=== PATIENT | male | born 1960 | race Caucasian/White ===

== ENCOUNTER → 2020-04-15 13:42 | Outpatient (CLI) | payer BC, SELFPAY ==
--- NOTE | ~2020-04-15 | XR_ITS ---
EXAMINATION: XR foot RT 2V DATE: 04/15/2020 14:00 INDICATION: Right foot pain. TECHNIQUE: 2 views of right foot were obtained. COMPARISON: None. FINDINGS: There is mild hallux valgus. No fracture. There is mild osteoarthritis of first metatarsoph alangeal joint. Small loose bodies overlie the posterior recess of the ankle joint. There is an enthe sophyte at plantar aspect of calcaneal tuberosity. IMPRESSION: 1. Mild hallux valgus. 2. Mild osteoarthritis of first metatarsophalangeal joint. 3. Small ankle joint loose bodies. Reviewed, dictated and finalized at location B.
--- NOTE | ~2020-04-15 | XR_ITS ---
EXAMINATION: XR ankle RT 2V DATE: 04/15/2020 14:00 INDICATION: Right ankle pain. TECHNIQUE: 2 views of right ankle were obtained. COMPARISON: None. FINDINGS: Bone alignment is normal. No fracture. Joint spaces are normal. There are small loose nae s in the ankle joint. There is an enthesophyte at plantar aspect of calcaneal tuberosity. Ankle soft tissue swelling is noted. IMPRESSION: 1. Small loose bodies in the ankle joint. Reviewed, dictated and finalized at location B.
== END ==
PROVIDERS: PCP Family Medicine; Visit Provider Nurse Practitioner Family
DX: M20.11 Hallux valgus (acquired), right foot (principal); M19.071 Primary osteoarthritis, right ankle and foot; M24.071 Loose body in right ankle
CPT/HCPCS: 73600; 73620

== ENCOUNTER 2024-01-24 10:48 | Outpatient (CLI) | payer MEDICARE, SELFPAY ==
--- NOTE | ~2024-01-24 | US_ITS ---
EXAMINATION: US soft tissue head and neck DATE: 01/24/2024 10:57 INDICATION: Benign lipomatous neoplasm, unspecified. TECHNIQUE: Multiple grayscale and Doppler ultrasound images of the head and neck were obtained. COMPARISON: Head CT 07/09/2010 FINDINGS: In the posterior neck, there is a 2.4 x 1.5 x 2.4 cm subcutaneous hypoechoic mass. No inter nal vascularity. IMPRESSION: 1. 2.4 cm hypoechoic subcutaneous mass in the posterior neck, most likely a sebaceous cyst. Neoplasm is not excluded. Reviewed, dictated and finalized at location A. IMPRESSION: 1. 2.4 cm hypoechoic subcutaneous mass in the posterior neck, most likely a eliel aceous cyst. Neoplasm is not excluded.
== END 2024-01-24 10:49 ==
LOC: MICIMG 10:49
PROVIDERS: PCP Family Medicine; Visit Provider Nurse Practitioner Adult Health
DX: D17.9 Benign lipomatous neoplasm, unspecified (principal); R22.1 Localized swelling, mass and lump, neck
CPT/HCPCS: 76536

== ENCOUNTER 2024-10-03 14:46 | Outpatient (CLI) | payer MEDICARE, SELFPAY ==
--- NOTE | ~2024-10-03 | XR_ITS ---
XR abdomen/kub 1V 10/03/2024 15:11 INDICATION: Abdomen pain TECHNIQUE: KUB COMPARISON: None FINDINGS: Bowel gas pattern is normal. Moderate colonic fecal loading. There is no evidence of free a ir, mass, organomegaly, ascites or obstruction. No abnormal calculi are seen. The bones appear inta ct. IMPRESSION: 1: No acute abdominal abnormality identified. Reviewed, dictated and finalized at location B. COINER
--- NOTE | ~2024-10-03 | CT_ITS ---
EXAMINATION: CT abdomen pelvis wo/w con DATE: 10/03/2024 15:51 INDICATION: Unspecified abdominal pain. TECHNIQUE: Computed tomography (CT) of the abdomen and pelvis was performed without intravenous contr ast. CT of the abdomen and pelvis was then performed with a total of 130 mL Omnipaque-350 intravenous contrast using a double-bolus technique for simultaneous opacification of the renal parenchyma and r enal collecting system. Automated exposure control and iterative reconstruction technique were employ ed. The dose-length product was 1740.00 mGy-cm. COMPARISON: None FINDINGS: Lung bases are clear. Heart size normal. Small amount of atherosclerotic coronary artery calcificatio n. No pericardial or pleural effusion. Subcentimeter low-attenuation hepatic cyst. Gallbladder, pancr eas and bilateral adrenal glands are normal. There are few scattered splenic calcification consistent with old granulomatous disease. There are couple subcentimeter low-attenuation bilateral renal cysts . There is a 5 x 5 x 3 mm at least partially obstructing stone at the proximal left ureter with mild left hydroureteronephrosis and left perinephric stranding. There is however no delayed left nephrogra m. No other urolithiasis. Contrast seen in the normal bladder. Prostatomegaly measuring 5.5 x 3.8 cm. Moderate-sized fat-containing left inguinal hernia. Mild scattered diverticulosis without adjacent c omparison to suggest diverticulitis. No bowel obstruction. Small right lower quadrant fat-containing ventral hernia located immediately adjacent to the cecum. Moderate to severe lumbar and moderate thor acic spondylosis. IMPRESSION: 1. At least partially obstructing 5 mm left ureteral stone with mild left hydronephrosis. 2. Prostatomegaly. 3. Small fat-containing right lower quadrant ventral hernia and moderate-sized fat-containing left in guinal hernia. Reviewed, dictated and finalized at location A. TRATOR IMPRESSION: 1. At least partially obstructing 5 mm left ureteral stone with mild left hydro nephrosis. 2. Prostatomegaly. 3. Small fat-containing right lower quadrant ventral hernia and moderate-sized fat-containing left inguinal hernia.
[2024-10-03 15:35] LABS: Estimated Glomerular Filt Rate 47
--- OUTSIDE RECORDS SUMMARY | 2024-10-03 15:42 | XMS_ITS | Referral Summary ---
Author Organization [facility] Address [address] [place] [address] Care Team Providers Care Meat Wrapper Name Role Phone Unavailable Primary Care Provider Unavailabl e Source Comments [facility],non-owned Affiliates and Associated Physician Practices is amultiple site organization consisting of ambulatory clinics and hospital sitesin [place], [place], [place] and [place]. This disclosure is being madepursuant to the Care Everywhere program and may not contain all information available regarding this patient. Last updated 18.[facility] [employer] Social History Tobacco Use Types Packs/Day Years Used Date Smoking Tobacco: Never Assessed Sex and Gender Information Value Date Recorded Sex Assigned at Not on file Gender Identity Not on file Sexual Orientation Not on file Plan of Treatment Not on file
--- OUTSIDE RECORDS SUMMARY | 2024-10-03 15:42 | XMS_ITS | Clinical Summary ---
Author Organization [facility] Address [address] [place] [address] Care Team Providers Care Leather Sponger Name Role Phone Kushal Araujo MD Primary Care Provider [phone] Social History Tobacco Use Types Packs/Day Years Used Date Smoking Tobacco: Never Assessed Sex and Gender Information Value Date Recorded Sex Assigned at Not on file Legal Sex Male 1:21 PM CDT Gender Identity Not on file Sexual Orientation Not on file Plan of Treatment Health Maintenance Due Date Last Done Comments Colorectal Cancer Screening Colonoscopy (10 Years) 1958 Hepatitis C 1976 Pneumococcal Vaccine: 65+ Years (1 of 1 - PCV) 2023 COVID-19 Vaccine (2023-2 5 season) 2024 07/16/2021, 11/20/2020, 10/25/2020 Influenza Adult (#1) 2024 04/30/2020 DTaP, Tdap and Td Vaccines ( 2 - Td or Tdap) 03/31/2030 03/31/2020 RSV Immunization or 60+ Years (1 - 1-dose 75+ series) 2033 Zoster Vaccines Completed 07/25/2020, 04/30/2020 Meningococcal B Vaccine Aged Out No l onger eligible based on patient's age to complete this topic Meningococcal Vaccine Aged Out No sailaja herber eligible based on patient's age to complete this topic RSV Immunizations Under 20 Months Aged Out No longer eligible b ased on patient's age to complete this topic Insurance [facility] Care Teams Leather Sponger Relationship Specialty Start Date End Date Kushal Araujo MD [address] [address] PCP - General FAMILY PRACTICE 04/23/20
--- OUTSIDE RECORDS SUMMARY | 2024-10-03 15:42 | XMS_ITS | Patient Health Summary ---
Author Organization [facility] Address [address] [place] [address] Care Team Providers Care Soft Iron Inspector Name Role Phone Unavailable Primary Care Provider Unavailabl e Note from [facility],non-owned Affiliates and Associated Physician Practices is amultiple site organization consisting of ambulatory clinics and hospital sitesin [place], [place], [place]. This disclosure is being madepursuant to the Care Everywhere program and may not contain all information available regarding this patient. Last updated 18.[facility] Social History Tobacco Use Types Packs/Day Years Used Date Smoking Tobacco: Never Assessed Sex and Gender Information Value Date Recorded Sex Assigned at Not on file Gender Identity Not on file Sexual Orientation Not on file Procedures * DERMATOPATHOLOGY(Performed 07/31/2022) Results * DERMATOPATHOLOGY (07/31/2022 12:00 AM PAY STATION DEPARTMENT MANAGER) Case Report Dermatopathology Report Case: [id number] Authorizing Provider: Shady Hernandez MD Collected: 07/31/2022 12:00 AM Ordering Location: [facility] DermPath Lab Received: 08/03/2022 12:46 PM Pathologist: Shawanda Mathis MD Specimen: Skin, left chin 2 4:06 PM [facility] DERMATOPATHOLOGY LABORATORY Final Diagnosis Specimen A. 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 The specimen consists of a shave biopsy measuring 5x4x5 mm. Jar 0. 2 4:06 PM [facility] DERMATOPATHOLOGY LABORATORY Microscopic Description Specimen A. SKIN, left chin: Sections show a lobular tumor composed of aggregates of epithelial cells extending from the epidermis into the dermis. The aggregates are composed of squamoid cells showing variable glycogen vacuolation (pale-staining cytoplasm). 2 4:06 PM [facility] DERMATOPATHOLOGY LABORATORY Disclaimer An external and internal positive and negative controls are appropriate for the histochemical, immunohistochemical and immunofluorescence stain(s) in this case (if any), except where stated explicitly. The performance characteristics of the stain(s) cited in this report were developed and its performance characteristic determined by the Dermatopathology Laboratory at [facility], directed by Dr. Rachell Mathis. These tests need not be, and therefore are not, approved by the [place] Food and Drug Administration. The tests are used for clinical purposes. Billing Codes Specimen Charges Stain Charges 13321 1 2 4:06 PM [facility] DERMATOPATHOLOGY LABORATORY Embedded Images 2 4:06 PM [facility] DERMATOPATHOLOGY LABORATORY Pathology/Cytolog y TISSUE SPECIMEN FROM SKIN / Unknown 07/31/2022 08/03/2022 12:46 PM [facility] Shady Hernandez MD LAB - PATHOLOGY/CYTO LOGY ORDERABLES DERMATOPATHOLOGY LABORATORY [facility] - Department of Dermatology [address], [address] [phone]
--- OUTSIDE RECORDS SUMMARY | 2024-10-03 15:42 | XMS_ITS | Encounter Summary ---
Author Organization [facility] Address [address] [place] [address] Care Team Providers Care Automotive Power Electronics Engineer Name Role Phone Bhakti Chase MD Unavailable Unavailable Encounter Details Date Type Department Care Team (Late st Contact Info) Description 08/03/2022 Lab Requisition [facility] DermPath Lab [address] [place] [phone] Shady Hernandez MD [address] [place] [address] Social History Tobacco Use Types Packs/Day Years Used Date Smoking Tobacco: Never Assessed Sex and Gender Information Value Date Recorded Sex Assigned at Not on file Gender Identity Not on file Sexual Orientation Not on file documented as of this encounter Plan of Treatment Not on file documented as of this encounter Procedures Procedure Name Priority Date/Time Associated Diagnosis Comments DERMATOPATHOLOGY Routine 07/31/2022 12:0 0 AM YOKER MACHINE OPERATOR documented in this encounter Results * DERMATOPATHOLOGY (07/31/2022 12:00 AM YOKER MACHINE OPERATOR) Case Report Dermatopathology Report Case: [id number] Authorizing Provider: Shady Hernandez MD Collected: 07/31/2022 12:00 AM Ordering Location: [facility] DermPath Lab Received: 08/03/2022 12:46 PM Pathologist: Shawanda Mathis MD Specimen: Skin, left chin 2 4:06 PM YOKER MACHINE OPERATOR DERMATOPATHOLOGY LABORATORY Final Diagnosis Specimen A. 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 The specimen consists of a shave biopsy measuring 5x4x5 mm. Jar 0. 2 4:06 PM [facility] DERMATOPATHOLOGY LABORATORY Microscopic Description Specimen A. SKIN, left chin: Sections show a lobular tumor composed of aggregates of epithelial cells extending from the epidermis into the dermis. The aggregates are composed of squamoid cells showing variable glycogen vacuolation (pale-staining cytoplasm). 2 4:06 PM [facility] DERMATOPATHOLOGY LABORATORY Disclaimer An external and internal positive and negative controls are appropriate for the histochemical, immunohistochemical and immunofluorescence stain(s) in this case (if any), except where stated explicitly. The performance characteristics of the stain(s) cited in this report were developed and its performance characteristic determined by the Dermatopathology Laboratory at [facility], directed by Dr. Rachell Mathis. These tests need not be, and therefore are not, approved by the [place] Food and Drug Administration. The tests are used for clinical purposes. Billing Codes Specimen Charges Stain Charges 20009 1 2 4:06 PM [facility] DERMATOPATHOLOGY LABORATORY Embedded Images 2 4:06 PM [facility] DERMATOPATHOLOGY LABORATORY Pathology/Cytolog y TISSUE SPECIMEN FROM SKIN / Unknown 07/31/2022 08/03/2022 12:46 PM YOKER MACHINE OPERATOR Shady Hernandez MD LAB - PATHOLOGY/CYTO LOGY ORDERABLES DERMATOPATHOLOGY LABORATORY [facility] - Department of Dermatology [facility] Medicine [address] [place] [address], [address] [phone] documented in this encounter Visit Diagnoses Not on filedocumented in this encounter Care Teams Automotive Power Electronics Engineer Relationship Specialty Start Date End Date Bhakti Chase MD PCP - Attributed-[employer] [place] 08/23/22 07/10/23 documented as of this encounter
--- OUTSIDE RECORDS SUMMARY | 2024-10-03 15:42 | XMS_ITS | Clinical Summary ---
Author Organization [facility] [employer] Address [address] [place] [address] Care Team Providers Care Car Worker Helper Name Role Phone Unavailable Primary Care Provider Unavailabl e Source Comments [facility] [employer],non-owned Affiliates and Associated Physician Practices is amultiple site organization consisting of ambulatory clinics and hospital sitesin [place], [place], [place] and [place]. This disclosure is being madepursuant to the Care Everywhere program and may not contain all information available regarding this patient. Last updated 18.[facility] [employer] Social History Tobacco Use Types Packs/Day Years Used Date Smoking Tobacco: Never Assessed Sex and Gender Information Value Date Recorded Sex Assigned at Not on file Gender Identity Not on file Sexual Orientation Not on file Plan of Treatment Health Maintenance Due Date Last Done Comments COLOGUARD (AGES 45-75) - COL ON CA SCREENING 1958 COLON MONITORING 1958 COLONOSCOPY - COLON CA SCREENING 1958 CT COLONOGRAPHY - COLON CA SCREENING 1960 Colorectal Cancer Screening 1958 FIT - COLON CA SCREENING 1958 FLEX SIG - COLON CA SCREENING 1958 LIPID TESTING 1960 HEPATITIS C SCREENING 06/02/1976 DTAP/TDAP/TD VACCINES (1 - Tdap) 1977 PNEUMOCOCCAL VACCINE 50+ (1 of 1 - PCV) 2008 ZOSTER VACCINE (1 of 2) 2008 COVID-19 VACCINE ( - 2023-2 5 season) 2024 INFLUENZA VACCINE (#1) 2024 DEPRESSION SCREENING 08/23/2024 Respiratory Syncytial Virus (RSV) Vaccine Pt: or over 60 yrs (1 - 1-dose 75+ series) 2033 HEPATITIS B VACCINE Aged Out No longe r eligible based on patient's age to complete this topic HIB VACCINE Aged Out No longer eligi ble based on patient's age to complete this topic HPV VACCINE Aged Out No longer eligi ble based on patient's age to complete this topic MENINGOCOCCAL (Group B) VACCINE Aged Out No longer eligible based on patient's age to complete this topic MENINGOCOCCAL VACCINE Aged Out No sailaja herber eligible based on patient's age to complete this topic
== END 2024-10-03 14:47 | disposition home or self-care (01) ==
LOC: ANHIMG 14:55
PROVIDERS: PCP Family Medicine; Visit Provider Physician Assistant Medical
DX: N40.0 Benign prostatic hyperplasia without lower urinary tract symptoms (principal); J43.9 Emphysema, unspecified; N20.0 Calculus of kidney
CPT/HCPCS: 74018; 74178; Q9967

== ENCOUNTER 2024-10-03 19:22 | Emergency (ER) | payer MEDICARE, OTHER, SELFPAY ==
--- OUTSIDE RECORDS SUMMARY | 2024-10-03 19:24 | XMS_ITS | Encounter Summary ---
Author Organization [facility] Address [address] [place] [address] Care Team Providers Care Surgical Territory Manager Name Role Phone Bhakti Chase MD Unavailable Unavailable Encounter Details Date Type Department Care Team (Late st Contact Info) Description 08/03/2022 Lab Requisition [facility] DermPath Lab [address] [facility] [place] [phone] Shady Hernandez MD [address] [place] [address] Social History Tobacco Use Types [...] Comments DERMATOPATHOLOGY Routine 07/31/2022 12:0 0 AM LINK TRAINER OPERATOR documented in this encounter Results * DERMATOPATHOLOGY (07/31/2022 12:00 AM LINK TRAINER OPERATOR) Case Report Dermatopathology Report Case: [id number] Authorizing Provider: Shady Hernandez MD Collected: 07/31/2022 12:00 AM Ordering Location: [facility] DermPath Lab Received: 08/03/2022 12:46 PM Pathologist: Shawanda Mathis MD Specimen: Skin, left chin 2 4:06 PM LINK TRAINER OPERATOR DERMATOPATHOLOGY LABORATORY Final Diagnosis Specimen A. 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 The specimen consists of a shave biopsy measuring 5x4x5 mm. Jar 0. 2 4:06 PM [facility] DERMATOPATHOLOGY LABORATORY Microscopic Description Specimen A. SKIN, left chin: Sections show a lobular tumor composed of aggregates of epithelial cells extending from the epidermis into the dermis. The aggregates are composed of squamoid cells showing variable glycogen vacuolation (pale-staining cytoplasm). 2 4:06 PM [facility] DERMATOPATHOLOGY LABORATORY Disclaimer An external and internal positive and negative controls are appropriate for the histochemical, immunohistochemical and immunofluorescence stain(s) in this case (if any), except where stated explicitly. The performance characteristics of the stain(s) cited in this report were developed and its performance characteristic determined by the Dermatopathology Laboratory at [facility], directed by Dr. Rachell Mathis. These tests need not be, and therefore are not, approved by the [place] Food and Drug Administration. The tests are used for clinical purposes. Billing Codes Specimen Charges Stain Charges 63615 1 2 4:06 PM [facility] DERMATOPATHOLOGY LABORATORY Embedded Images 2 4:06 PM [facility] DERMATOPATHOLOGY LABORATORY Pathology/Cytolog y TISSUE SPECIMEN FROM SKIN / Unknown 07/31/2022 08/03/2022 12:46 PM LINK TRAINER OPERATOR Shady Hernandez MD LAB - PATHOLOGY/CYTO LOGY ORDERABLES DERMATOPATHOLOGY LABORATORY [facility] - Department of Dermatology [facility] Medicine [address] [place] [address], [address] [phone] documented in this encounter Visit Diagnoses Not on filedocumented in this encounter Care Teams Surgical Territory Manager Relationship Specialty Start Date End Date Bhakti Chase MD PCP - Attributed-[employer] [place] 08/23/22 07/10/23 documented as of this encounter
--- OUTSIDE RECORDS SUMMARY | 2024-10-03 19:24 | XMS_ITS | Referral Summary ---
Author Organization [facility] Address [address] [place] [address] Care Team Providers Care Fund Accounting Manager Name Role Phone Unavailable Primary Care Provider Unavailabl e Source Comments [facility],non-owned Affiliates and Associated Physician Practices is amultiple site organization consisting of ambulatory clinics and hospital sitesin [place], [place], [place]. This disclosure is being madepursuant to the Care Everywhere program and may not contain all information available regarding this patient. Last updated 18.[facility] [employer] Social History Tobacco Use Types Packs/Day Years Used Date Smoking Tobacco: Never Assessed Sex and Gender Information Value Date Recorded Sex Assigned at Not on file Gender Identity Not on file Sexual Orientation Not on file Plan of Treatment Not on file
--- OUTSIDE RECORDS SUMMARY | 2024-10-03 19:24 | XMS_ITS | Clinical Summary ---
Author Organization [facility] [employer] Address [address] [place] [address] Care Team Providers Care Strategic Account Manager Name Role Phone Unavailable Primary Care Provider Unavailabl e Source Comments [facility] [employer],non-owned Affiliates and Associated Physician Practices is amultiple site organization consisting of ambulatory clinics and hospital sitesin [place], [place], [place] and [place]. This disclosure is being madepursuant to the Care Everywhere program and may not contain all information available regarding this patient. Last updated 18.[facility] [employer] Social History Tobacco Use Types Packs/Day Years [...]
--- OUTSIDE RECORDS SUMMARY | 2024-10-03 19:24 | XMS_ITS | Patient Health Summary ---
Author Organization [facility] Address [address] [place] [address] Care Team Providers Care Rehabilitation Engineer Name Role Phone Unavailable Primary Care Provider Unavailabl e Note from [facility],non-owned Affiliates and Associated Physician Practices is amultiple site organization consisting of ambulatory clinics and hospital sitesin [place], [place], [place] and [place]. This disclosure is being madepursuant to the Care Everywhere program and may not contain all information available regarding this patient. Last updated 18.[facility] Social History Tobacco Use Types Packs/Day Years Used Date Smoking Tobacco: Never Assessed Sex and Gender Information Value Date Recorded Sex Assigned at Not on file Gender Identity Not on file Sexual Orientation Not on file Procedures * DERMATOPATHOLOGY(Performed 07/31/2022) Results * DERMATOPATHOLOGY (07/31/2022 12:00 AM IP LITIGATION ASSOCIATE) Case Report Dermatopathology Report [id number]: [id number] Authorizing Provider: Shady Hernandez MD Collected: 07/31/2022 12:00 AM Ordering Location: [facility] DermPath Lab Received: 08/03/2022 12:46 PM Pathologist: Shawanda Mathis MD Specimen: Skin, left chin 2 4:[address] [facility] DERMATOPATHOLOGY LABORATORY Final Diagnosis Specimen A. 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 DERMATOPATHOLOGY LABORATORY Clinical History R/O Filiform Actinic Keratosis Scc, BCC 2 4:[address] [facility] DERMATOPATHOLOGY LABORATORY Gross Description Specimen A: Received is one formalin filled container labeled with the patient's name and designated left chin. The specimen consists of a shave biopsy measuring 5x4x5 mm. Jar 0. 2 4:[address] [facility] DERMATOPATHOLOGY LABORATORY Microscopic Description Specimen A. SKIN, left chin: Sections show a lobular tumor composed of aggregates of epithelial cells extending from the epidermis into the dermis. The aggregates are composed of squamoid cells showing variable glycogen vacuolation (pale-staining cytoplasm). 2 4:[address] [facility] DERMATOPATHOLOGY LABORATORY Disclaimer An external and internal positive and negative controls are appropriate for the histochemical, immunohistochemical and immunofluorescence stain(s) in this case (if any), except where stated explicitly. The performance characteristics of the stain(s) cited in this report were developed and its performance characteristic determined by the Dermatopathology Laboratory at [facility], directed by Dr. Rachell Mathis. These tests need not be, and therefore are not, approved by the [place] Food and Drug Administration. The tests are used for clinical purposes. Billing Codes Specimen Charges Stain Charges 66048 1 2 4:[address] [facility] DERMATOPATHOLOGY LABORATORY Embedded Images 2 4:[address] [facility] DERMATOPATHOLOGY LABORATORY Pathology/Cytolog y TISSUE SPECIMEN FROM SKIN / Unknown 07/31/2022 08/03/2022 12:[address] [facility] Shady Hernandez MD LAB - PATHOLOGY/CYTO LOGY ORDERABLES DERMATOPATHOLOGY LABORATORY [facility] - Department of Dermatology [address], [address] [phone]
--- OUTSIDE RECORDS SUMMARY | 2024-10-03 19:24 | XMS_ITS | Clinical Summary ---
Author Organization [facility] Address [address] [place] [address] Care Team Providers Care Athlete Manager Name Role Phone Kushal Araujo MD Primary Care Provider [phone] Social History Tobacco Use Types Packs/Day Years [...] patient's age to complete this topic Insurance [facility] Care Teams Athlete Manager Relationship Specialty Start Date End Date Kushal Araujo MD [address] [place] [address] PCP - General FAMILY PRACTICE 04/23/20
[2024-10-03 19:48] VITALS: BP 177/76; PULSE 59; RESP 15; TEMP 36.6; O2SAT 100
--- NOTE | 2024-10-03 22:26 | PC.NURSE ---
Pt approached triage desk stating that he was going to leave. Pt advised to be seen at nearest ED for any new or worsening symptoms. Pt ambulated to ED exit with steady gait and no signs for concern at this time.
--- OUTSIDE RECORDS SUMMARY | 2024-10-03 23:32 | XMS_ITS | Clinical Summary ---
Author Organization [facility] Address [address] [place] [address] Care Team Providers Care Discharge Door Operator Name Role Phone Unavailable Primary Care Provider Unavailabl e Source Comments [facility],non-owned Affiliates and Associated Physician Practices is amultiple site organization consisting of ambulatory clinics and hospital sitesin [place], [place], [place] and [place]. This disclosure is being madepursuant to the Care Everywhere program and may not contain all information available regarding this patient. Last updated 18.[facility] Social History Tobacco Use Types Packs/Day Years [...]
--- OUTSIDE RECORDS SUMMARY | 2024-10-03 23:32 | XMS_ITS | Patient Health Summary ---
Author Organization [facility] Address [address] [place] [address] Care Team Providers Care Pv Design Engineer Name Role Phone Unavailable Primary Care Provider Unavailabl e Note from [facility],non-owned Affiliates and Associated Physician Practices is amultiple site organization consisting of ambulatory clinics and hospital sitesin [place], [place], [place] and [place]. This disclosure is being madepursuant to the Care Everywhere program and may not contain all information available regarding this patient. Last updated 18.[facility] Social History Tobacco Use Types Packs/Day Years Used Date Smoking Tobacco: Never Assessed Sex and Gender Information Value Date Recorded Sex Assigned at Not on file Gender Identity Not on file Sexual Orientation Not on file Procedures * DERMATOPATHOLOGY(Performed 07/31/2022) Results * DERMATOPATHOLOGY (07/31/2022 12:00 AM ROTARY DRILL RIG OPERATOR) Case Report Dermatopathology Report Case: [id number] Authorizing Provider: Shady Hernandez MD Collected: 07/31/2022 12:00 AM Ordering Location: [facility] DermPath Lab Received: 08/03/2022 12:46 PM Pathologist: Shawanda Mathis MD Specimen: Skin, left chin 2 4:06 PM [facility] DERMATOPATHOLOGY LABORATORY Final Diagnosis Specimen A. 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 The specimen consists of a shave biopsy measuring 5x4x5 mm. Jar 0. 2 4:06 PM [facility] DERMATOPATHOLOGY LABORATORY Microscopic Description Specimen A. SKIN, left chin: Sections show a lobular tumor composed of aggregates of epithelial cells extending from the epidermis into the dermis. The aggregates are composed of squamoid cells showing variable glycogen vacuolation (pale-staining cytoplasm). 2 4:06 PM [facility] DERMATOPATHOLOGY LABORATORY Disclaimer An external and internal positive and negative controls are appropriate for the histochemical, immunohistochemical and immunofluorescence stain(s) in this case (if any), except where stated explicitly. The performance characteristics of the stain(s) cited in this report were developed and its performance characteristic determined by the Dermatopathology Laboratory at [facility], directed by Dr. Rachell Mathis. These tests need not be, and therefore are not, approved by the [place] Food and Drug Administration. The tests are used for clinical purposes. Billing Codes Specimen Charges Stain Charges 72413 1 2 4:06 PM [facility] DERMATOPATHOLOGY LABORATORY Embedded Images 2 4:06 PM [facility] DERMATOPATHOLOGY LABORATORY Pathology/Cytolog y TISSUE SPECIMEN FROM SKIN / Unknown 07/31/2022 08/03/2022 12:46 PM [facility] Shady Hernandez MD LAB - PATHOLOGY/CYTO LOGY ORDERABLES DERMATOPATHOLOGY LABORATORY [facility] - Department of Dermatology [address], [address] [phone]
--- OUTSIDE RECORDS SUMMARY | 2024-10-03 23:32 | XMS_ITS | Clinical Summary ---
Author Organization [facility] Address [address] [place] [id number] Care Team Providers Care Adoption Manager Name Role Phone Kushal Araujo MD Primary Care Provider [phone] Social History Tobacco Use Types Packs/Day Years [...] patient's age to complete this topic Insurance [facility] Care Teams Adoption Manager Relationship Specialty Start Date End Date Kushal Araujo MD [address] [place] [address] PCP - General FAMILY PRACTICE 04/23/20
--- OUTSIDE RECORDS SUMMARY | 2024-10-03 23:32 | XMS_ITS | Referral Summary ---
Author Organization [facility] Address [address] [place] [address] Care Team Providers Care Herb Grower Name Role Phone Unavailable Primary Care Provider Unavailabl e Source Comments [facility],non-owned Affiliates and Associated Physician Practices is amultiple site organization consisting of ambulatory clinics and hospital sitesin [place], [place], [place] and [place]. This disclosure is being madepursuant to the Care Everywhere program and may not contain all information available regarding this patient. Last updated 18.[facility] [employer] Social History Tobacco Use Types Packs/Day Years Used Date Smoking Tobacco: Never Assessed Sex and Gender Information Value Date Recorded Sex Assigned at Not on file Gender Identity Not on file Sexual Orientation Not on file Plan of Treatment Not on file
--- OUTSIDE RECORDS SUMMARY | 2024-10-03 23:32 | XMS_ITS | Encounter Summary ---
Author Organization [facility] Address [address] [place] [address] Care Team Providers Care Exceptional Needs Teacher Name Role Phone Bhakti Chase MD Unavailable Unavailable Encounter Details Date Type Department Care Team (Late st Contact Info) Description 08/03/2022 Lab Requisition [facility] DermPath Lab [address] [place] [id number] Shady Hernandez MD [address] [place] [address] Social History Tobacco Use Types [...] Comments DERMATOPATHOLOGY Routine 07/31/2022 12:0 0 AM LIFE TESTER OUTBOARD MOTORS documented in this encounter Results * DERMATOPATHOLOGY (07/31/2022 12:00 AM [employer] TE[employer]) Case Report Dermatopathology Report Case: [id number] Authorizing Provider: Shady Hernandez MD Collected: 07/31/2022 12:00 AM Ordering Location: [facility] DermPath Lab Received: 08/03/2022 12:46 PM Pathologist: Shawanda Mathis MD Specimen: Skin, left chin 2 4:06 PM [employer] DERMATOPATHOLOGY LABORATORY Final Diagnosis Specimen A. 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 The specimen consists of a shave biopsy measuring 5x4x5 mm. Jar 0. 2 4:06 PM [facility] DERMATOPATHOLOGY LABORATORY Microscopic Description Specimen A. SKIN, left chin: Sections show a lobular tumor composed of aggregates of epithelial cells extending from the epidermis into the dermis. The aggregates are composed of squamoid cells showing variable glycogen vacuolation (pale-staining cytoplasm). 2 4:06 PM [facility] DERMATOPATHOLOGY LABORATORY Disclaimer An external and internal positive and negative controls are appropriate for the histochemical, immunohistochemical and immunofluorescence stain(s) in this case (if any), except where stated explicitly. The performance characteristics of the stain(s) cited in this report were developed and its performance characteristic determined by the Dermatopathology Laboratory at [facility], directed by Dr. Rachell Mathis. These tests need not be, and therefore are not, approved by the [place] Food and Drug Administration. The tests are used for clinical purposes. Billing Codes Specimen Charges Stain Charges 11215 1 2 4:06 PM [facility] DERMATOPATHOLOGY LABORATORY Embedded Images 2 4:06 PM [facility] DERMATOPATHOLOGY LABORATORY Pathology/Cytolog y TISSUE SPECIMEN FROM SKIN / Unknown 07/31/2022 08/03/2022 12:46 PM [employer] Shady Hernandez MD LAB - PATHOLOGY/CYTO LOGY ORDERABLES DERMATOPATHOLOGY LABORATORY [facility] - Department of Dermatology [facility] Medicine [address] [place] [address], [address] [phone] documented in this encounter Visit Diagnoses Not on filedocumented in this encounter Care Teams Exceptional Needs Teacher Relationship Specialty Start Date End Date Bhakti Chase MD PCP - Attributed-[employer] [place] 08/23/22 07/10/23 documented as of this encounter
== END 2024-10-03 23:26 | disposition left against medical advice (07) ==
PROVIDERS: PCP Family Medicine
DX: R10.9 Unspecified abdominal pain (principal)
CPT/HCPCS: 99199

== ENCOUNTER 2025-05-21 09:07 | Outpatient (CLI) | payer MEDICARE, OTHER, SELFPAY ==
--- NOTE | ~2025-05-21 | XR_ITS ---
EXAMINATION: XR abdomen/kub 1V DATE: 05/21/2025 09:28 INDICATION: Calculi, ureter follow-up TECHNIQUE: A supine view of the abdomen on 2 radiographs was obtained. COMPARISON: 10/03/2024 FINDINGS: Moderate amount of stool. Small amount of air in nondilated large and small bowel. No radiographic evidence for renal, ureteral or bladder calculi. IMPRESSION: 1. Nonspecific abdomen with a moderate amount of stool. 2. No radiographic evidence for renal, ureteral or bladder calculi. If symptoms persist or worsen, consider a short-term follow-up study or additional imaging for further assessment. Reviewed, dictated and finalized at location Q. IMPRESSION: 1. Nonspecific abdomen with a moderate amount of stool. 2. No radiographic evidence for renal, ureteral or bladder calculi. If symptoms persist or worsen, consider a short-term follow-up study or additio nal imaging for further assessment.
--- NOTE | ~2025-05-21 | US_ITS ---
EXAMINATION: US retroperitoneal comp DATE: 05/21/2025 10:34 INDICATION: Follow-up post lithotripsy for left ureteral stone several months prior TECHNIQUE: Multiple grayscale, color Doppler, and pulsed Doppler images of the kidneys and renal arteries were obtained. COMPARISON: CT dated 10/03/2024 FINDINGS: The right kidney measures 13.1 x 6.0 x 4.6 cm. The left kidney measures 11.6 x 5.5 x 3.7 cm. The kidneys demonstrate normal echogenicity. There is no hydronephrosis in either kidney. No evident shadowing nephrolithiasis. The bladder is normal. Right-sided but no left-sided ureteral jet visualized in the bladder on color Doppler. IMPRESSION: 1. Normal kidneys without hydronephrosis or evident nephrolithiasis. Reviewed, dictated and finalized at location A.
--- OUTSIDE RECORDS SUMMARY | 2025-05-21 09:40 | XMS_ITS | Encounter Summary ---
Author Organization [facility] Address [address] [facility] [place] [address] Care Team Providers Care Crisis Counselor Name Role Phone Bhakti Chase MD Unavailable Unavailable Encounter Details Date Type Department Care Team (Late st Contact Info) Description 08/03/2022 Lab Requisition 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 DermPath Lab Received: 08/03/2022 12:46 PM Pathologist: Shawanda Mathis MD Specimen: Skin, left chin 2 4:06 PM ANIMAL LABORATORY HELPER DERMATOPATHOLOGY LABORATORY Final Diagnosis Specimen A. 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 The specimen consists of a shave biopsy measuring 5x4x5 mm. Jar 0. 2 4:06 PM [facility] DERMATOPATHOLOGY LABORATORY Microscopic Description Specimen A. SKIN, left chin: Sections show a lobular tumor composed of aggregates of epithelial cells extending from the epidermis into the dermis. The aggregates are composed of squamoid cells showing variable glycogen vacuolation (pale-staining cytoplasm). 2 4:06 PM [facility] DERMATOPATHOLOGY LABORATORY Disclaimer An external and internal positive and negative controls are appropriate for the histochemical, immunohistochemical and immunofluorescence stain(s) in this case (if any), except where stated explicitly. The performance characteristics of the stain(s) cited in this report were developed and its performance characteristic determined by the Dermatopathology Laboratory at [facility], directed by Dr. Rachell Mathis. These tests need not be, and therefore are not, approved by the [place] Food and Drug Administration. The tests are used for clinical purposes. Billing Codes Specimen Charges Stain Charges 24279 1 2 4:06 PM [facility] DERMATOPATHOLOGY LABORATORY Embedded Images 2 4:06 PM [facility] DERMATOPATHOLOGY LABORATORY Pathology/Cytolog y TISSUE SPECIMEN FROM SKIN / Unknown 07/31/2022 08/03/2022 12:46 PM ANIMAL LABORATORY HELPER hSady Hernandez MD LAB - PATHOLOGY/CYTOLOGY ORD ERABLES Final Result DERMATOPATHOLOGY LABORATORY [facility] - Department of Dermatology [facility] Special[facility] Medicine [address] [place] [address], [address] [phone] documented in this encounter Visit Diagnoses Not on filedocumented in this encounter Care Teams Crisis Counselor Relationship Specialty Start Date End Date Bhakti Chase MD PCP - Attributed-[employer] [place] 08/23/22 07/10/23 documented as of this encounter
--- OUTSIDE RECORDS SUMMARY | 2025-05-21 09:40 | XMS_ITS | Clinical Summary ---
Author Organization [facility] Address [address] [place] [address] Care Team Providers Care Production Machine Computer Operator Name Role Phone Unavailable Primary Care Provider Unavailabl e Source Comments [facility],non-owned Affiliates and Associated Physician Practices is amultiple site organization consisting of ambulatory clinics and hospital sitesin [place], [place], [place] and [place]. This disclosure is being madepursuant to the Care Everywhere program and may not contain all information available regarding this patient. 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
== END 2025-05-21 09:08 | disposition home or self-care (01) ==
PROVIDERS: PCP Family Medicine; Visit Provider Urology
DX: N20.1 Calculus of ureter (principal)
CPT/HCPCS: 74018; 76770